=== PATIENT | female | born 2000 | race Caucasian/White ===

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

== ENCOUNTER 2021-08-13 14:22 | Emergency (ER) | payer MEDICAID ==
[~2021-08-13] VITALS: Ht 167.6 cm; Wt 91.0 kg
[2021-08-13] MEDS ORDERED: IBUP-2029 PO (15:27)
[2021-08-13] MEDS ORDERED: AZIT250T12 MT (15:27)
[2021-08-13 15:54] VITALS: BP 123/73
== END 2021-08-13 15:55 | disposition home or self-care (01) ==
LOC: ER 14:22
DX: J02.9 Acute pharyngitis, unspecified (principal); Z88.0 Allergy status to penicillin
CPT/HCPCS: 99283

== ENCOUNTER 2023-02-02 12:43 | Emergency (ER) | payer MEDICAID ==
[~2023-02-02] VITALS: Ht 170.2 cm; Wt 98.0 kg
[~2023-02-02 12:43] MED LIST: AZIT250T12 MT; IBUP-2029 PO
[2023-02-02 12:51] VITALS: BP 103/80
[2023-02-02] MEDS ORDERED: IBUP-2028 MT (13:51)
[2023-02-02] MEDS ORDERED: LIDO700A30 TP (13:51)
== END 2023-02-02 15:36 | disposition home or self-care (01) ==
LOC: ER 12:43
DX: M54.9 Dorsalgia, unspecified (principal); Z88.0 Allergy status to penicillin; V49.50XA Passenger injured in collision with unspecified motor vehicles in traffic accident, initial encounter; Y93.89 Activity, other specified; Y92.89 Other specified places as the place of occurrence of the external cause; Y99.8 Other external cause status
CPT/HCPCS: 99281; 99282